=== PATIENT | male | born 1995 | race Caucasian/White ===

== ENCOUNTER 2017-05-24 12:48 | Emergency (ER) | payer OTHER ==
[~2017-05-24] VITALS: Ht 177.8 cm; Wt 83.5 kg
[2017-05-24 13:45] VITALS: BP_SYST 131
[2017-05-24 16:55] VITALS: BP_SYST 138
== END 2017-05-24 16:55 | disposition home or self-care (01) ==
LOC: SED 12:48
DX: S29.012A Strain of muscle and tendon of back wall of thorax, initial encounter (principal); V89.2XXA Person injured in unspecified motor-vehicle accident, traffic, initial encounter; Y93.89 Activity, other specified; Y92.89 Other specified places as the place of occurrence of the external cause; Y99.8 Other external cause status
CPT/HCPCS: 99283